=== PATIENT | male | born 1975 | race Caucasian/White ===

== ENCOUNTER → 2016-08-22 | Emergency (ER) | payer OTHER ==
--- NOTE | 2016-08-23 01:08 | ED MED RECONCILIATION SUMMARY ---
Patient: FAUSTINO MCCLENDON Medication Reconciliation Report [facility] VisitID: [id number] [address] [place] [place] [address] 41y, M Registration Date/Time: 08/22/2016 Weight: (not available) Height/Length: (not available) BMI: (not available) ALLERGIES: The patient's Home Medications are listed below: Not obtained. The source(s) of the original Home Medication information: Not obtained. The following Medications were given to the patient in the Emergency Department: None. The following Medications were prescribed to the patient: None.
--- NOTE | 2016-08-23 01:08 | ED NURSING NOTES ---
Clinical Report - Nurses [place] [address] [place] [place] [address] 08/22/2016 21:08 Patient: FAUSTINO MCCLENDON DISPOSITION / DISCHARGE no answer at 2354, 0030, and 0100. The patient left the Emergency Department before triage. The patient did not notify the ED staff prior to leaving the department. --01:07 Alena Rg R.N. Locked/Released at 08/23/2016 1:07 by Alena Rg R.N.
--- NOTE | 2016-08-23 01:08 | ED NURSING NOTES ---
Clinical Report - Nurses [place] [address] [place] [address] 08/22/2016 21:08 Patient: FAUSTINO MCCLENDON DISPOSITION / DISCHARGE no answer at 2354, 0030, and 0100. The patient left the Emergency Department before triage. The patient did not notify the ED staff prior to leaving the department. --01:07 Alena Rg R.N. Locked/Released at 08/23/2016 1:07 by Alena Rg R.N.
--- NOTE | 2016-08-23 01:08 | ED MED RECONCILIATION SUMMARY ---
Patient: FAUSTINO MCCLENDON Medication Reconciliation Report [facility] VisitID: [id number] [address] [place] [address] 41y, M Registration Date/Time: 08/22/2016 Weight: (not available) Height/Length: (not available) BMI: (not available) ALLERGIES: The patient's Home Medications are listed below: Not obtained. The source(s) of the original Home Medication information: Not obtained. The following Medications were given to the patient in the Emergency Department: None. The following Medications were prescribed to the patient: None.
--- NOTE | 2016-08-23 01:08 | ED MAR SUMMARY ---
..... Medication Administration Record [facility] [address] [place], [place] [id number] Patient: FAUSTINO MCCLENDON Visit ID: [id number] 41y, M Weight: (not available) Height/Length: (not available) BMI: (not available) ALLERGIES:
--- NOTE | 2016-08-23 01:08 | ED MAR SUMMARY ---
..... Medication Administration Record [facility] [address] [place], [place] [id number] Patient: FAUSTINO MCCLENDON Visit ID: [id number] 41y, M Weight: (not available) Height/Length: (not available) BMI: (not available) ALLERGIES:
== END ==
LOC: ED SRH 21:09
DX: Z53.21 Procedure and treatment not carried out due to patient leaving prior to being seen by health care provider (principal)